=== PATIENT | female | born 1980 | race Caucasian/White ===

== ENCOUNTER 2021-02-26 21:47 | Emergency (ER) | payer MEDICAID ==
[~2021-02-26] VITALS: Ht 167.6 cm; Wt 86.4 kg
[2021-02-26 21:48] VITALS: BP 133/82
[2021-02-26] MEDS ORDERED: GABA-1216 PO (22:18)
[2021-02-26] MEDS ORDERED: NAPR-1197 PO (22:18)
[2021-02-26] MEDS ORDERED: METH-659 PO (22:18)
[2021-02-26] MEDS ORDERED: ACETAMINOPHEN 500 MG TABLET PO ONE (23:30)
[2021-02-26] MEDS ORDERED: AMOX TR/POT CLAV 875 MG/125 MG TABLET PO ONE (23:30)
[2021-02-26] MEDS ORDERED: IBUPROFEN 600 MG TABLET PO ONE (23:30)
== END 2021-02-27 00:06 | disposition home or self-care (01) ==
LOC: EMS 21:52
DX: K08.89 Other specified disorders of teeth and supporting structures (principal); J45.909 Unspecified asthma, uncomplicated; F12.90 Cannabis use, unspecified, uncomplicated; F17.290 Nicotine dependence, other tobacco product, uncomplicated; Z79.899 Other long term (current) drug therapy
CPT/HCPCS: 99284; Z7502; Z7610